=== PATIENT | female | born 1960 | race Caucasian/White ===

== ENCOUNTER 2018-10-07 18:29 | Emergency (ER) | payer OTHER ==
[~2018-10-07] VITALS: Ht 152.4 cm; Wt 77.5 kg
[2018-10-07 18:38] VITALS: Ht 152.4 cm; Wt 77.5 kg
[2018-10-07 20:28] VITALS: BP 138/71; PULSE 67; RESP 17
--- NOTE | 2018-10-07 20:42 | ERD ---
ER Documentation Chief Complaint Chief Complaint BIB FAMILY FROM HOME W/ EPISODE OF CONFUSION THAT LATED 30MIN HPI Patient is a 58-year-old female with hypertension who presents with confusion. The patient had total memory loss and confusion per the family. It started 2 hours ago. She was repeating herself and could not find her car keys. This is never happened to her before. She has had no fevers. The family denies alcohol or drugs. Upon review of old medical records this is the patient's first visit to the emergency department. She does have a primary doctor. ROS All systems reviewed and are negative except as per history of present illness. Allergies Allergies: Coded Allergies: No Known Allergy (Unverified , 10/07/18) PMhx/Soc History of Surgery: Yes (right middle finger, x2, cholecystectomy) Anesthesia Reaction: No Hx Neurological Disorder: No Hx Respiratory Disorders: No Hx Cardiac Disorders: Yes (HTN HLD) Hx Psychiatric Problems: No Hx Miscellaneous Medical Probl: No Hx Alcohol Use: No Hx Substance Use: No Hx Tobacco Use: No Smoking Status: Never smoker FmHx Family History: diabetes Physical Exam Vitals Vital Signs Date Temp Pulse Resp B/P (MAP) Pulse Ox O2 O2 Flow FiO2 Time Delivery Rate 10/07/18 98.5 67 17 138/71 98 Room Air 20:28 (93) 10/07/18 98.9 101 20 195/92 96 18:38 (126) Physical Exam Const: No acute distress Head: Atraumatic Eyes: Normal Conjunctiva ENT: Normal External Ears, Nose and Mouth. Neck: Full range of motion. No meningismus. Resp: Clear to auscultation bilaterally Cardio: Regular rate and rhythm, no murmurs Abd: Soft, non tender, non distended. Normal bowel sounds Skin: No petechiae or rashes Back: No midline or flank tenderness Ext: No cyanosis, or edema Neur: Awake and alert, awake alert and oriented and able to tell me her name, year, and place at this time, cranial nerves II through XII are intact, no slurred speech, no weakness, equal filler shaker strength Psych: Normal Mood and Affect Result Diagram: 10/07/18 9705 10/07/18 1900 Results 24 hrs Laboratory Tests Test 10/07/18 18:59 10/07/18 19:00 10/07/18 19:11 White Blood Count 5.9 10^3/ul Red Blood Count 4.48 10^6/ul Hemoglobin 14.1 g/dl Hematocrit 41.1 % Mean Corpuscular Volume 91.7 fl Mean Corpuscular Hemoglobin 31.5 pg Mean Corpuscular 34.3 g/dl Hemoglobin Concent Red Cell Distribution Width 11.5 % Platelet Count 229 10^3/UL Mean Platelet Volume 10.1 fl Immature Granulocytes % 0.300 % Neutrophils % 60.9 % Lymphocytes % 29.7 % Monocytes % 7.6 % Eosinophils % 1.0 % Basophils % 0.5 % Nucleated Red Blood Cells % 0.0 /100WBC Immature Granulocytes # 0.020 10^3/ul Neutrophils # 3.6 10^3/ul Lymphocytes # 1.8 10^3/ul Monocytes # 0.5 10^3/ul Eosinophils # 0.1 10^3/ul Basophils # 0.0 10^3/ul Nucleated Red Blood Cells # 0.0 10^3/ul Prothrombin Time 11.8 Sec Prothrombin Time Ratio 0.9 INR International 0.86 Normalized Ratio Activated Partial Thromboplast 25.8 Sec Time Hemoglobin A1c 5.9 % Urine Color STRAW Urine Clarity CLEAR Urine pH 6.0 Urine Specific [place] 1.010 Urine Ketones NEGATIVE mg/dL Urine Nitrite NEGATIVE mg/dL Urine Bilirubin NEGATIVE mg/dL Urine Urobilinogen NEGATIVE mg/dL Urine Leukocyte Esterase NEGATIVE Natalie/ul Urine Microscopic RBC 9 /HPF Urine Microscopic WBC 4 /HPF Urine Squamous Epithelial Cells FEW /HPF Urine Bacteria FEW /HPF Urine Hemoglobin 1+ mg/dL Urine Glucose NEGATIVE mg/dL Urine Total Protein NEGATIVE mg/dl Sodium Level 141 mmol/L Potassium Level 4.0 mmol/L Chloride Level 104 mmol/L Carbon Dioxide Level 26 mmol/L Anion Gap 11 Blood Urea Nitrogen 14 mg/dl Creatinine 0.74 mg/dl Est Glomerular Filtrat > 60 mL/min Rate mL/min Glucose Level 147 mg/dl Calcium Level 9.7 mg/dl Troponin I < 0.012 ng/ml Triglycerides Level 170 mg/dl Cholesterol Level 205 mg/dl LDL Cholesterol, Calculated 120 mg/dl HDL Cholesterol 51 mg/dl Cholesterol/HDL Ratio 4.0 RATIO Urine Opiates Screen Negative Urine Barbiturates Negative Urine Amphetamines Screen Negative Urine Benzodiazepines Screen Negative Urine Cocaine Screen Negative Urine Cannabinoids Negative Bedside Glucose 140 mg/dL Procedures/MDM CT brain negative per radiology. EKG read by me: Rate/Rhythm: Regular rate and rhythm at a rate of 82 Intervals: Normal Impression: No evidence of ischemia or arrhythmia Patient is a 58-year-old female who presents with what sounds like transient global amnesia. The patient is answering all questions appropriately at this time and is acting normally to me. Laboratory studies were normal. Urinalysis shows no sign of infection. CT scan shows no signs of abnormality. At this point I doubt stroke, intracranial hemorrhage, or intracranial mass. I doubt serious electrolyte abnormality. I believe outpatient management is appropriate but the patient will need to follow-up closely with her primary doctor within 24-48 hours for reevaluation. She can return sooner for any worsening symptoms. Departure Diagnosis: Primary Impression: Altered level of consciousness Condition: Fair Patient Instructions: Altered Loc Referrals: Your doctor Additional Instructions: Llame al doctor ROBY y ruma loki NILAY PARA DENTRO DE 1-2 GARCIA.Dgale a la secretaria que nosotros le instruimos hacer esta nilay.Avise o llame si montaño condicin se empeora antes de la nilay. Regresa aqui si peor o no mejor. WILLIAM MARTINES MD Oct 07, 2018 20:42
== END 2018-10-07 20:34 | disposition home or self-care (01) ==
LOC: E/R 18:29
DX: R40.4 Transient alteration of awareness (principal); R40.2142 Coma scale, eyes open, spontaneous, at arrival to emergency department; R40.2252 Coma scale, best verbal response, oriented, at arrival to emergency department; R40.2362 Coma scale, best motor response, obeys commands, at arrival to emergency department; Z86.73 Personal history of transient ischemic attack (TIA), and cerebral infarction without residual deficits
CPT/HCPCS: 36415; 70450; 71045; 80048; 80061; 80307; 81001; 82962; 83036; 84484; 85025; 85610; 85730; 93005